=== PATIENT | female | born 1960 | race Caucasian/White ===

== ENCOUNTER 2019-04-27 17:36 | Emergency (ER) | payer OTHER ==
[2019-04-27 18:21] VITALS: BMI 30.9
--- NOTE | 2019-04-27 19:24 | PDOC ---
History of Present Illness - General History Source: Patient, Crime Data Specialist Used Exam Limitations: Language Barrier ([employer] #[id number]) - History of Present Illness Initial Comments: 04/27/19 20:50 58 yo F pmh DM, HTN, HLD, Polio, sleep apnea, narcolepsy, and asthma presents with 2 months of right flank / abdominal pain that has increased greatly in severity in the past 4 days. Pain described as sharp, colicky, radiating from back to groin, and alleviated by laying down / straightening out her right leg. She ENDORSES nausea and vomiting x5 since this AM, as well as constipation for 4 days, unable to tolerate solid foods. Tolerates ice chips and small amounts of water. ENDORSES dysuria. Denies blood in stool, F/C, chest pain, SOB, lightheadedness and dizziness. Pt has h/o uterus/bladder repositioning surgery and no longer menstruates. No h/o renal stones. Pt states her PCP believes there may be gallbladder pathology. PMH: as above, pt states she has a few years of right flank neuralgia that superimposes current complaint. Surgeries: right leg surgery due to polio Meds: see chart ALLERGIES: morphine, codeine, PCN, sulfa abx Denies etoh <Danielito Felix - Last Filed: 04/27/19 22:06> <Teresita Valles - Last Filed: 04/28/19 01:55> - General Stated Complaint: ABD PAIN Time Seen by Provider: 04/27/19 19:21 Past History - Suicide/Smoking/Psychosocial Hx Smoking History: Never smoked Have you smoked in the past 12 months: No Information on smoking cessation initiated: No Hx Alcohol Use: No Drug/Substance Use Hx: No <Danielito Felix - Last Filed: 04/27/19 22:06> <Teresita Valles - Last Filed: 04/28/19 01:55> - Past Medical History Allergies/Adverse Reactions: Allergies Allergy/AdvReac Type Severity Reaction Status Date / Time codeine AdvReac Verified 04/27/19 20:14 morphine AdvReac Verified 04/27/19 20:14 Penicillins AdvReac Verified 04/27/19 20:14 Sulfa (Sulfonamide AdvReac Verified 04/27/19 20:14 Antibiotics) Review of Systems - Review of Systems Able to Perform ROS?: Yes Is the patient limited Thai proficient: Yes Constitutional: No: Chills, Diaphoresis, Fever Respiratory: No: Cough, Shortness of Breath, Wheezing Cardiac (ROS): No: Symptoms Reported, See HPI, Chest Pain, Edema, Irregular Heart Rate, Lightheadedness, Palpitations, Syncope, Chest Tightness, Other ABD/GI: Yes: Constipated, Nausea, Poor Appetite, Poor Fluid Intake, Vomiting. No: Blood Streaked Bowels, Diarrhea, Rectal Bleeding : Yes: Burning, Dysuria. No: Hematuria Neurological: No: Headache, Numbness, Tingling <Danielito Felix - Last Filed: 04/27/19 22:06> *Physical Exam - Vital Signs Last Vital Signs Temp Pulse Resp BP Pulse Ox 98.1 F 100 H 16 136/83 97 04/27/19 18:15 04/27/19 18:15 04/27/19 18:15 04/27/19 18:15 04/27/19 18:15 - Physical Exam Comments: 04/27/19 21:02 GEN: Resting in bed with mild discomfort. HEENT: NC/AT, EOMI, PERRLA. CN II-XII intact. Moist mucous membranes. CV: S1/S2, RRR, no m/r/g LUNG: CTAB, no wheezes, crackles, rales, rhonchi. Normal inspiratory effort. GI: soft, nd. (+) TTP of the left mid quadrant and right flank. Tenderness to light touch of the right flank, no vesicular rashes. (+) Right CVAT. (+) BOLTON SIGN. EXTREMITIES: right leg in brace and shoe. <Danielito Felix - Last Filed: 04/27/19 22:06> - Vital Signs Last Vital Signs Temp Pulse Resp BP Pulse Ox 98.1 F 100 H 16 136/83 97 04/27/19 18:15 04/27/19 18:15 04/27/19 18:15 04/27/19 18:15 04/27/19 18:15 <Teresita Valles - Last Filed: 04/28/19 01:55> ED Treatment Course - LABORATORY CBC & Chemistry Diagram: 04/27/19 22:19 04/27/19 22:19 - ADDITIONAL ORDERS Additional order review: Laboratory Results 04/27/19 04/27/19 04/27/19 23:29 22:19 22:19 Sodium 139 Potassium 4.3 Chloride 105 Carbon Dioxide 24 Anion Gap 11 BUN 20.3 H Creatinine 0.7 Est GFR (CKD-EPI)AfAm 111.47 Est GFR (CKD-EPI)NonAf 96.18 Random Glucose 182 H Lactic Acid 1.1 Calcium 9.3 Total Bilirubin 0.3 AST 23 ALT 44 Alkaline Phosphatase 146 H Total Protein 7.6 Albumin 3.7 Lipase 122 Urine Color Urine Appearance Urine pH Ur Specific [place] Urine Protein Urine Glucose (UA) Urine Ketones Urine Blood Urine Nitrite Urine Bilirubin Urine Urobilinogen Ur Leukocyte Esterase Urine WBC (Auto) Urine RBC (Auto) Urine Casts (Auto) U Epithel Cells (Auto) Urine Bacteria (Auto) 04/27/19 22:10 Sodium Potassium Chloride Carbon Dioxide Anion Gap BUN Creatinine Est GFR (CKD-EPI)AfAm Est GFR (CKD-EPI)NonAf Random Glucose Lactic Acid Calcium Total Bilirubin AST ALT Alkaline Phosphatase Total Protein Albumin Lipase Urine Color Yellow Urine Appearance Clear Urine pH 5.5 Ur Specific [place] 1.022 Urine Protein Negative Urine Glucose (UA) 1+ H Urine Ketones Negative Urine Blood 1+ H Urine Nitrite Negative Urine Bilirubin Negative Urine Urobilinogen 0.2 Ur Leukocyte Esterase Negative Urine WBC (Auto) 1 Urine RBC (Auto) 14 Urine Casts (Auto) 1 U Epithel Cells (Auto) 4.9 Urine Bacteria (Auto) 137.3 04/27/19 22:19 RBC 4.73 MCV 86.2 MCHC 34.3 RDW 14.1 MPV 9.2 Neutrophils % 64.6 Lymphocytes % 25.9 Monocytes % 6.8 Eosinophils % 2.2 Basophils % 0.5 - RADIOLOGY Radiology Studies Ordered: Category Date Time Status ABDOMEN & PELVIS CT WITH CONTR [CT] Stat CT Scan 04/27/19 22:53 Taken - Medications Given in the ED: ED Medications Discontinued Medications Generic Name Dose Route Start Last Admin Trade Name Freq PRN Reason Stop Dose Admin Acetaminophen 1,000 mg 04/27/19 21:54 04/27/19 22:28 Ofirmev Injection - IVPB 04/27/19 21:55 1,000 mg ONCE ONE Administration Sodium Chloride 1,000 mls @ 1,000 mls/hr 04/27/19 20:18 04/27/19 20:55 Normal Saline - IV 04/27/19 21:17 1,000 mls/hr ASDIR STA Administration Ondansetron HCl 4 mg 04/27/19 20:18 04/27/19 20:55 Zofran Injection IVPUSH 04/27/19 20:19 4 mg ONCE STA Administration <Teresita Valles - Last Filed: 04/28/19 01:55> Medical Decision Making - Medical Decision Making 04/27/19 21:10 58 yo F pmh DM, HTN, HLD, Polio, sleep apnea, narcolepsy, and asthma presents with acute worsening of subacute right flank pain described as stabbing, on/off , and radiating from back to groin. Also complains of a day of nausea, vomiting x5, poor solid intake, and 4 days of constipation. Exam significant right CVA tenderness, positive bolton sign, and mild tenderness to palpation of the left mid quadrant. DDx most likely cholecystitis and/or renal stone. Unlikely but considering UTI, SBO, diverticulitis, or appendicitis. Right flank pain - CBC, CMP, LIPASE, LACTATE - UA - IV, NS, zofran, pain control - CT A/P Signed out to attending. <Danielito Felix - Last Filed: 04/27/19 22:06> *DC/Admit/Observation/Transfer <Danielito Felix - Last Filed: 04/27/19 22:06> <Teresita Valles - Last Filed: 04/28/19 01:55> Diagnosis at time of Disposition: Right flank pain - Discharge Dispostion Disposition: HOME Condition at time of disposition: Stable - Referrals Referrals: Atul Mustafa MD [Primary Care Provider] - - Patient Instructions Printed Discharge Instructions: DI for Flank Pain Additional Instructions: please follow up with your primary physician - Post Discharge Activity
[2019-04-27] MEDS ORDERED: ONDANSETRON 4 MG/2 ML VIAL IVPUSH STA (20:18)
[2019-04-27] MEDS ORDERED: SODIUM CHLORIDE 1,000 ML IV STA (20:18)
--- NOTE | 2019-04-27 20:51 | PDOC ---
Documentation entered by Pattie Su SCRIBE, acting as scribe for Teresita Valles MD. Teresita Valles MD: This documentation has been prepared by the Georges molina Xhesika, SCRIBE, under my direction and personally reviewed by me in its entirety. I confirm that the documentation accurately reflects all work, treatment, procedures, and medical decision making performed by me. Attending Attestation - Resident Resident Name: Danielito Felix - ED Attending Attestation I have performed the following: I have examined & evaluated the patient, The case was reviewed & discussed with the resident, I agree w/resident's findings & plan, Exceptions are as noted - HPI HPI: 04/27/19 20:32 The patient is a 58 year old female, with a significant PMH of DM, HTN, sleep apnea, and polio who presents to the emergency department with 2 months of R abdominal pain, R flank pain, and L flank pain, worsening the last 4 days. Patient describes the L flank pain as stabbing, radiating to her front associated with 5 episodes of vomiting today. The patient denies chest pain, shortness of breath, headache and dizziness. Denies fever, chills, nausea, diarrhea and constipation. Denies dysuria, frequency, urgency and hematuria. Allergies: Codeine, morphine, penicillins, shellfish derived PCP: Atul Hawley - Physicial Exam PE: 04/27/19 20:33 GENERAL: Awake, alert, and fully oriented, in no acute distress HEAD: No signs of trauma EYES: PERRLA, EOMI, sclera anicteric, conjunctiva clear ENT: Auricles normal inspection, hearing grossly normal, nares patent, oropharynx clear without exudates. Moist mucosa NECK: Normal ROM, supple, no lymphadenopathy, JVD, or masses LUNGS: Breath sounds equal, clear to auscultation bilaterally. No wheezes, and no crackles HEART: Regular rate and rhythm, normal S1 and S2, no murmurs, rubs or gallops ABDOMEN: (+) L mid abdominal pain. (+) L flank pain. (+) R flank pain. Soft, nontender, normoactive bowel sounds. No guarding, no rebound. No masses EXTREMITIES: (+) chronic L leg and R arm residual weakness. Normal range of motion, no edema. No clubbing or cyanosis. No cords, erythema, or tenderness NEUROLOGICAL: Cranial nerves II through XII grossly intact. Normal speech, normal gait SKIN: Warm, Dry, normal turgor, no rashes or lesions noted. - Medical Decision Making 04/27/19 20:35 58 yo female with chronic rt flank pain that became worse in past 4 days with nausea and vomiting she also has c/p left flank and left mid abd pain she denies fever,chills,sob,chest pain pmh htn,dm,sleep apnea,polio as child with chronic rt sided residual diff included nephrolithiasis,pylo,ACS,cholecyctitis 04/28/19 01:53 CAT scan of the abdomen and pelvis did not show any significant abdominal or pelvicpathology. No small bowel obstruction, no colitis, no diverticulitis, appendicitis, no kidney stones. Gallbladder and pancreas were unremarkable. Patient referred back to her primary care provider for possible GI referral Patient has no fever, no vomiting at this time and is comfortable chronic intermittent in right sided abdominal pain
[2019-04-27] MEDS ORDERED: ONDANSETRON 4 MG/2 ML VIAL ONE (21:24)
[2019-04-27] MEDS ORDERED: ACETAMINOPHEN 1000 MG/100 ML VIAL (NON FORMULARY) IVPB ONE (21:54)
[2019-04-27] MEDS ORDERED: ACETAMINOPHEN INJECTION 100 ML IVPB ONE (21:56)
[2019-04-27 22:30] LABS: EPI CELLS 4.9 /HPF (0-5/HPF); HYALINE CASTS 1 /lpf (0-8); PH,URINE 5.5 (5.0-8.0); URINE APPEARANCE CLEAR; URINE BACTERIA 137.3 /hpf (NEGATIVE); URINE BILIRUBIN NEGATIVE (NEGATIVE); URINE COLOR YELLOW; URINE GLUCOSE (UA) 1+ (NEGATIVE); URINE KETONE NEGATIVE (NEGATIVE); URINE LEUK ESTERASE NEGATIVE (NEGATIVE); URINE NITRITE NEGATIVE (NEGATIVE); URINE PROTEIN NEGATIVE (NEGATIVE); URINE RBC 14 /hpf (0-4); URINE UROBILINOGEN 0.2 mg/dL (0.2-1.0); URINE WBC 1 /hpf (0-5)
[2019-04-27 22:44] LABS: BASO % 0.5 % (0-2.0); EOS % 2.2 % (0-4.5); HEMATOCRIT 40.8 % (32.4-45.2); LYMPH % 25.9 % (8-40); MCH 29.6 pg (25.7-33.7); MCHC 34.3 g/dl (32.0-36.0); MEAN CELL VOLUME 86.2 fl (80-96); MEAN PLT VOLUME 9.2 fl (7.5-11.1); MONO % 6.8 % (3.8-10.2); NEUT % 64.6 % (42.8-82.8); PLATELET COUNT 227 K/MM3 (134-434); RBC 4.73 M/mm3 (3.60-5.2); RDW 14.1 % (11.6-15.6); WHITE BLOOD COUNT 10.5 K/mm3 (4.0-10.0)
[2019-04-27 23:05] LABS: ALBUMIN 3.7 g/dl (3.4-5.0); BILIRUBIN,TOTAL 0.3 mg/dL (0.2-1); BLOOD UREA NITROGEN 20.3 mg/dL (7-18); CALCIUM 9.3 mg/dL (8.5-10.1); CREATININE 0.7 mg/dL (0.55-1.3); POTASSIUM 4.3 mmol/L (3.5-5.1); TOT PROT 7.6 g/dl (6.4-8.2)
[2019-04-28 02:38] VITALS: BP 137/84; PULSE 89; TEMP 97.5
--- NOTE | 2019-04-28 13:40 | EKG ---
Test Reason : Blood Pressure : / mmHG Vent. Rate : 086 BPM Atrial Rate : 086 BPM P-R Int : 154 ms QRS Dur : 066 ms QT Int : 380 ms P-R-T Axes : 032 044 048 degrees QTc Int : 454 ms POOR DATA QUALITY, INTERPRETATION MAY BE ADVERSELY AFFECTED NORMAL SINUS RHYTHM NONSPECIFIC ST AND T WAVE ABNORMALITY ABNORMAL ECG NO PREVIOUS ECGS AVAILABLE Confirmed by Saúl Arnold MD ([id number]) on 04/28/2019 1:40:24 PM Referred By: Confirmed By:Saúl Arnold MD
== END 2019-04-28 02:45 | disposition home or self-care (01) ==
LOC: JER 17:36
PROC: 3E033NZ Introduction of Analgesics, Hypnotics, Sedatives into Peripheral Vein, Percutaneous Approach (ICD-10-PCS; principal; 2019-04-27)
PROC: 3E033GC Introduction of Other Therapeutic Substance into Peripheral Vein, Percutaneous Approach (ICD-10-PCS; 2019-04-27)
PROC: 3E0337Z Introduction of Electrolytic and Water Balance Substance into Peripheral Vein, Percutaneous Approach (ICD-10-PCS; 2019-04-27)
DX: R10.31 Right lower quadrant pain (principal); I10 Essential (primary) hypertension; E11.9 Type 2 diabetes mellitus without complications; E78.5 Hyperlipidemia, unspecified; G47.30 Sleep apnea, unspecified; G47.419 Narcolepsy without cataplexy; J45.909 Unspecified asthma, uncomplicated
CPT/HCPCS: 36415; 74177-TC; 80053; 81003; 83605; 83690; 85025; 87077; 87086; 87186; 93005; 93010; 96361; 96374; 96375; 99284-25; J0131; J7030